=== PATIENT | female | born 1990 | race Caucasian/White ===

== ENCOUNTER → 2017-02-09 | Outpatient (CLI) | payer BC | END | disposition home or self-care (01) | LOC: MW.CHFP 11:59 | PROVIDERS: ATTEND Emergency Medicine | DX: D22.5 Melanocytic nevi of trunk (principal) | CPT/HCPCS: 88305 ==

== ENCOUNTER → 2017-02-23 | Outpatient (CLI) | payer BC ==
[~2017-02-23] MED LIST: Iopamidol 612 MG/ML 30 ML SDV IUTERINE STA
--- NOTE | 2017-02-23 10:47 | CR ---
EXAMINATION: Hysterosalpingogram. HISTORY: Infertility. Evaluate for tubal patency. PROCEDURE/FINDINGS: Written informed consent was obtained from the patient. Perineum was prepped wit h Betadine and after placement of vaginal speculum, the cervix was prepped with Betadine. A 5 [place] catheter was placed and after inflation of the balloon, 7 cc of contrast was injected until cornual regions are filled and multiple views of the pelvis are obtained. The uterine cavity is normal in configuration. No suspicious filling defects are seen. The right and left fallopian tubes are patent and spillage of contrast is noted into peritoneal cavi ty bilaterally. IMPRESSION: Patent fallopian tubes bilaterally.
== END | disposition home or self-care (01) ==
LOC: MW.DI 08:15
PROVIDERS: ATTEND Obstetrics & Gynecology
DX: Z31.49 Encounter for other procreative investigation and testing (principal)
CPT/HCPCS: 58340; 74740; Q9967

== ENCOUNTER 2018-07-07 03:15 | Inpatient (IN) | payer BC ==
[2018-07-07] MEDS ORDERED: Water For Irrigation,Sterile 1,000 ML Container IRR PRN (04:04)
[2018-07-07] MEDS ORDERED: Nalbuphine 10 MG/1 ML Vial IVPUSH PRN (04:04)
[2018-07-07] MEDS ORDERED: Lidocaine 1% 50 ML MDV INJECT PRN (04:04)
[2018-07-07] MEDS ORDERED: Sodium Chloride 0.9% 10 ML Syringe FLUSH PRN (04:04)
[2018-07-07] MEDS ORDERED: Tranexamic Acid 1,000 MG in Sodium Chloride 0.9% 100 ML IV PRN (04:04)
[2018-07-07] MEDS ORDERED: Butorphanol 1 MG/ML SDV IVPUSH PRN (04:04)
[2018-07-07] MEDS ORDERED: Sodium Chloride 0.9% 2.5 ML Syringe FLUSH PRN (04:04)
[2018-07-07] MEDS ORDERED: Misoprostol 200 MCG Tab PO PRN (04:04)
[2018-07-07] MEDS ORDERED: Carboprost Tromethamine 250 MCG/1 ML Amp IM PRN (04:04)
[2018-07-07] MEDS ORDERED: Methylergonovine 0.2 MG/1 ML Amp IM PRN (04:04)
[2018-07-07] MEDS ORDERED: Oxytocin/0.9 % Sodium Chloride 30 UNIT/500 ML BAG IV SCH (04:15)
[2018-07-07] MEDS: Lactated Ringers 1,000 ML IV SCH ×3 (04:23→12:28)
[2018-07-07] MEDS ORDERED: fentaNYL 100 MCG/2 ML SDV ONE (06:10)
[2018-07-07] MEDS ORDERED: Ropivacaine HCl/PF 100 ML ONE (06:10)
--- NOTE | 2018-07-07 06:33 | PCM.PREANE ---
Preanesthetic Assessment - Anesthesia/Transfusion/Family Hx Anesthesia History: No Prior Anesthesia Family History of Anesthesia Reaction: No - Review of Systems General: No Symptoms Pulmonary: No Symptoms Cardiovascular: No Symptoms Gastrointestinal: No Symptoms Neurological: No Symptoms Other: Reports: Thyroid Problems - Physical Assessment Height: 1.63 m Weight: 82.1 kg ASA Class: 1 Mental Status: Alert & Oriented x3 Dentition: Reports: Normal Dentition ROM/Head Extension: Full - Lab Values: Laboratory Last Values WBC 16.84 K/uL (4.0-11.0) H 07/07/18 04:23 RBC 4.14 M/uL (4.30-5.90) L 07/07/18 04:23 Hgb 13.6 g/dL (12.0-16.0) 07/07/18 04:23 Hct 38.3 % (36.0-46.0) 07/07/18 04:23 MCV 92.5 fL (80.0-98.0) 07/07/18 04:23 MCH 32.9 pg (27.0-32.0) H 07/07/18 04:23 MCHC 35.5 g/dL (31.0-37.0) 07/07/18 04:23 RDW Std Deviation 46.3 fl (28.0-62.0) 07/07/18 04:23 RDW Coeff of Brii 14 % (11.0-15.0) 07/07/18 04:23 Plt Count 182 K/uL (150-400) 07/07/18 04:23 MPV 9.90 fL (7.40-12.00) 07/07/18 04:23 Nucleated RBC % 0.0 /100WBC 07/07/18 04:23 Nucleated RBCs # 0 K/uL 07/07/18 04:23 Membrane Rupture POSITIVE 07/07/18 02:50 Blood Type O POSITIVE 07/07/18 04:23 Antibody Screen NEGATIVE 07/07/18 04:23 - Allergies Allergies/Adverse Reactions: Allergies Allergy/AdvReac Type Severity Reaction Status Date / Time No Known Allergies Allergy Verified 07/07/18 03:26 - Acknowledgements Anesthesia Type Planned: Epidural Pt an Appropriate Candidate for the Planned Anesthesia: Yes Alternatives and Risks of Anesthesia Discussed w Pt/Guardian: Yes Pt/Guardian Understands and Agrees with Anesthesia Plan: Yes 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 [No Known Home Meds] 07/07/18 [History] - CURRENT (IN HOUSE) MEDS Current Meds: Current Medications Butorphanol Tartrate (Stadol) 1 mg IVPUSH Q1H PRN PRN Reason: Pain Last Admin: 07/07/18 05:54 Dose: 1 mg Carboprost Tromethamine (Hemabate Ds) 250 mcg IM ASDIRECTED PRN PRN Reason: Post Hemorrhage Tranexamic Acid 1,000 mg/ (Sodium Chloride) 110 mls @ 660 mls/hr IV ONETIME PRN PRN Reason: Bleeding Lactated Ringer's (Ringers, Lactated) 1,000 mls @ 150 mls/hr IV ASDIRECTED MANJU Last Admin: 07/07/18 06:17 Dose: 150 mls/hr Oxytocin/Sodium Chloride (Oxytocin 30 Unit/500 Ml-Ns) 30 unit in 500 mls @ 999 mls/hr IV TITRATE MANJU Lidocaine HCl (Xylocaine 1%) 50 ml INJECT ONETIME PRN PRN Reason: Laceration repair Methylergonovine Maleate (Methergine) 0.2 mg IM ASDIRECTED PRN PRN Reason: Post Hemorrhage Misoprostol (Cytotec) 200 mcg PO ONETIME PRN PRN Reason: Post Hemorrhage Nalbuphine HCl (Nubain) 10 mg IVPUSH Q1H PRN PRN Reason: Pain (severe 7-10) Sodium Chloride (Saline Flush) 10 ml FLUSH ASDIRECTED PRN PRN Reason: Keep Vein Open Sodium Chloride (Saline Flush) 2.5 ml FLUSH ASDIRECTED PRN PRN Reason: Keep Vein Open Sterile Water (Sterile Water For Irrigation) 1,000 ml IRR ASDIRECTED PRN PRN Reason: delivery Discontinued Medications Fentanyl (Sublimaze) Confirm Administered Dose 100 mcg .ROUTE .STK-MED ONE Stop: 07/07/18 06:11 Ropivacaine (Naropin 0.2%) Confirm Administered Dose 100 mls @ as directed .ROUTE .STK-MED ONE Stop: 07/07/18 06:11
--- NOTE | 2018-07-07 06:35 | PCM.PRNOTE ---
- Free Text/Narrative Note: Anes Note Patient requests epidural for L&D. Sitting posiiton. Level L3-L4, midline approach. Sterile technique, chloroprep skin prep. Sterile drape applied. Locl 1% lido. Epidural space achieved at 4 cm using KIRBY technique, single attempt. Cathreaded 5 cm with ease. Sterile dressing applied. Test Dose 3 cc 1.5% lido with epi negative. Load 10 cc 0.2% ropivicaine with 2 mcg/cc fentanyl added in slow divided doses. Pump started same solution at 8 cc hr with 6 cc q 20 min prn bolus. Dudley well. Patient reports excellent analgesia. Kuldip Mccray CRNA
[2018-07-07] MEDS ORDERED: Ondansetron 4 MG/2 ML SDV IVPUSH ONE (12:20)
[2018-07-07] MEDS ORDERED: Ondansetron 4 MG/2 ML SDV ONE (12:22)
[2018-07-07] MEDS ORDERED: Ibuprofen 400 MG Tab PO PRN (13:48)
[2018-07-07] MEDS ORDERED: Lanolin 100% Cream 7 GM Tube TOP PRN (13:48)
[2018-07-07] MEDS ORDERED: oxyCODONE 5 MG Tab PO PRN (13:48)
[2018-07-07] MEDS ORDERED: Witch Hazel Medicated Pads 40/Jar TOP PRN (13:48)
[2018-07-07] MEDS ORDERED: Acetaminophen 500 MG Tab PO PRN ×2 (13:48)
[2018-07-07] MEDS ORDERED: Docusate Sodium 100 MG Cap PO PRN (13:48)
[2018-07-07] MEDS ORDERED: Benzocaine/Menthol 20%-0.5% Spray 78 GM Cannister TOP PRN (13:48)
[2018-07-07] MEDS ORDERED: Bisacodyl 10 MG Supp RECTAL PRN (13:48)
--- NOTE | 2018-07-07 13:53 | PCM.DEL ---
L & D Note - General Info Date of Service: 07/07/18 - Delivery Note Labor: Spontaneous Delivery Outcome: Livebirth Delivery Method: Spontaneous Vaginal Delivery-Single Delivery Mode: Spontaneous Presentation: Right Occiput Anterior (ALO) Nuchal Cord: None Prep: Other Anesthesia Type: Epidural Amniotic Fluid Description: Clear Episiotomy Type: None Laceration: None Placenta: Intact, Spontaneous Cord: 3 Vessels Estimated Blood Loss: 100 Resuscitation Needed: No Foster: Suctioned, Bulb Syringe, Xenia Used Score 1 min: 8 Score 5 min: 9 - General Info Date of Service: 07/07/18 - Patient Data Weight - Most Recent: 181 lb Lab Results Last 24 Hours: Laboratory Results - last 24 hr 07/07/18 07/07/18 07/07/18 Range/Units 02:50 04:23 04:23 WBC 16.84 H (4.0-11.0) K/uL RBC 4.14 L (4.30-5.90) M/uL Hgb 13.6 (12.0-16.0) g/dL Hct 38.3 (36.0-46.0) % MCV 92.5 (80.0-98.0) fL MCH 32.9 H (27.0-32.0) pg MCHC 35.5 (31.0-37.0) g/dL RDW Std Deviation 46.3 (28.0-62.0) fl RDW Coeff of Brii 14 (11.0-15.0) % Plt Count 182 (150-400) K/uL MPV 9.90 (7.40-12.00) fL Nucleated RBC % 0.0 /100WBC Nucleated RBCs # 0 K/uL Membrane Rupture POSITIVE Blood Type O POSITIVE Antibody Screen NEGATIVE Med Orders - Current: Current Medications Acetaminophen (Tylenol Extra Strength) 500 mg PO Q4H PRN PRN Reason: Pain Acetaminophen (Tylenol Extra Strength) 1,000 mg PO Q4H PRN PRN Reason: Pain Benzocaine/Menthol (Dermoplast Pain Relief 20%-0.5% [place]) 78 gm TOP ASDIRECTED PRN PRN Reason: Perineal Comfort Measure Bisacodyl (Dulcolax) 10 mg RECTAL ONETIME PRN PRN Reason: Constipation Docusate Sodium (Colace) 100 mg PO BID PRN PRN Reason: Constipation Emollient Ointment (Lansinoh Hpa) 0 gm TOP ASDIRECTED PRN PRN Reason: Sore Nipples Ibuprofen (Motrin) 400 mg PO Q4H PRN PRN Reason: Pain Ibuprofen (Motrin) 800 mg PO Q6H PRN PRN Reason: Pain Oxycodone HCl (Oxycodone) 5 mg PO Q2H PRN PRN Reason: Pain Witch Jaci (Tucks) 1 pad TOP ASDIRECTED PRN PRN Reason: comfort care Discontinued Medications Butorphanol Tartrate (Stadol) 1 mg IVPUSH Q1H PRN PRN Reason: Pain Last Admin: 07/07/18 05:54 Dose: 1 mg Carboprost Tromethamine (Hemabate Ds) 250 mcg IM ASDIRECTED PRN PRN Reason: Post Hemorrhage Fentanyl (Sublimaze) Confirm Administered Dose 100 mcg .ROUTE .STK-MED ONE Stop: 07/07/18 06:11 Tranexamic Acid 1,000 mg/ (Sodium Chloride) 110 mls @ 660 mls/hr IV ONETIME PRN PRN Reason: Bleeding Lactated Ringer's (Ringers, Lactated) 1,000 mls @ 150 mls/hr IV ASDIRECTED MANJU Last Admin: 07/07/18 12:28 Dose: 150 mls/hr Oxytocin/Sodium Chloride (Oxytocin 30 Unit/500 Ml-Ns) 30 unit in 500 mls @ 999 mls/hr IV TITRATE MANJU Ropivacaine (Naropin 0.2%) Confirm Administered Dose 100 mls @ as directed .ROUTE .STK-MED ONE Stop: 07/07/18 06:11 Lidocaine HCl (Xylocaine 1%) 50 ml INJECT ONETIME PRN PRN Reason: Laceration repair Methylergonovine Maleate (Methergine) 0.2 mg IM ASDIRECTED PRN PRN Reason: Post Hemorrhage Misoprostol (Cytotec) 200 mcg PO ONETIME PRN PRN Reason: Post Hemorrhage Nalbuphine HCl (Nubain) 10 mg IVPUSH Q1H PRN PRN Reason: Pain (severe 7-10) Ondansetron HCl (Zofran) 4 mg IVPUSH ONETIME ONE Stop: 07/07/18 12:21 Last Admin: 07/07/18 12:28 Dose: 4 mg Ondansetron HCl (Zofran) Confirm Administered Dose 4 mg .ROUTE .STK-MED ONE Stop: 07/07/18 12:23 Sodium Chloride (Saline Flush) 10 ml FLUSH ASDIRECTED PRN PRN Reason: Keep Vein Open Sodium Chloride (Saline Flush) 2.5 ml FLUSH ASDIRECTED PRN PRN Reason: Keep Vein Open Sterile Water (Sterile Water For Irrigation) 1,000 ml IRR ASDIRECTED PRN PRN Reason: delivery - Problem List & Annotations (1) Vaginal delivery SNOMED Code(s): 324252340 Code(s): O80 - ENCOUNTER FOR FULL-TERM UNCOMPLICATED DELIVERY Status: Acute Current Visit: Yes - Problem List Review Problem List Initiated/Reviewed/Updated: Yes - My Orders Last 24 Hours: My Active Orders 07/07/18 03:27 Non Stress Test [RC] PER UNIT ROUTINE Up ad Kisha [RC] ASDIRECTED Vaginal Exam [RC] Click to Edit Vital Signs [RC] PER UNIT ROUTINE 07/07/18 04:04 Heart Tones [RC] CONTINUOUS Non Stress Test [RC] PER UNIT ROUTINE May Shower [RC] ASDIRECTED Notify Provider [RC] PRN Up ad Kisha [RC] ASDIRECTED Vaginal Exam [RC] PRN 07/07/18 13:28 BLOOD GAS ARTERIAL UMBILICAL [BG] Routine BLOOD GAS VENOUS UMBILICAL [BG] Routine 07/07/18 13:48 Patient Status [ADT] Routine May Shower [RC] ASDIRECTED Up ad Kisha [RC] ASDIRECTED Vital Signs [RC] PER UNIT ROUTINE Acetaminophen [Tylenol Extra Strength] 1,000 mg PO Q4H PRN Acetaminophen [Tylenol Extra Strength] 500 mg PO Q4H PRN Benzocaine/Menthol [Dermoplast Pain Relief 20%-0.5% [place]] 78 gm TOP ASDIRECTED PRN Bisacodyl [Dulcolax] 10 mg RECTAL ONETIME PRN Docusate Sodium [Colace] 100 mg PO BID PRN Ibuprofen [Motrin] 400 mg PO Q4H PRN Ibuprofen [Motrin] 800 mg PO Q6H PRN Lanolin [Lansinoh HPA] See Dose Instructions TOP ASDIRECTED PRN Witch Jaci [Tucks] 1 pad TOP ASDIRECTED PRN oxyCODONE 5 mg PO Q2H PRN Assess Lochia [WOMSER] Per Unit Routine Assess Uterine Involution [WOMSER] Per Unit Routine Breast Pump [WOMSER] Per Unit Routine Peripheral IV Discontinue [OM.PC] Routine Resuscitation Status Routine 07/07/18 Dinner Regular Diet [DIET] 07/08/18 05:11 HEMOGLOBIN/HEMATOCRIT,HH [HEME] Timed
[2018-07-07] MEDS: Ibuprofen 800 MG Tab PO PRN (15:34)
--- NOTE | 2018-07-07 20:20 | OR ---
SURGEON: Judith Hart MD DATE OF PROCEDURE: 07/07/2018 PREOPERATIVE DIAGNOSES: 1. Term at 39 weeks and 3 days. 2. Spontaneous labor with spontaneous rupture of membrane. POSTOPERATIVE DIAGNOSES: 1. Term at 39 weeks and 3 days. 2. Spontaneous labor with spontaneous rupture of membrane. 3. Delivered. PROCEDURE: Spontaneous vaginal delivery. ANESTHESIA: Epidural. ESTIMATED BLOOD LOSS: 100 mL. COMPLICATIONS: None. DISPOSITION: Mother and baby stable in Labor and Delivery room, bonding. FINDINGS: Female , weight 3210 g, score 8 and 9 at 1 and 5 minutes respectively. Grossly normal placenta with three-vessel cord. Intact perineum. BRIEF HISTORY: Concepcion is a 27-year-old G1, P0, who presented to Labor and Delivery early hours of this morning at 39 weeks and 3 days with history of contractions for at least 3 hours prior to her presentation and then spontaneous rupture of membrane leaking clear fluid about an hour prior to her presenting. She denied vaginal bleeding, and reported movement. care was uncomplicated. GBS negative. On admission, she was found to be 3 cm dilated, 90% effaced, -3 station. She was admitted and with a category , she was allowed to ambulate. When she was reexamined 4 hours later, she had made cervical change to 6 to 7 cm dilatation and requested to receive an epidural then for pain management. She subsequently progressed nicely to full dilatation and commenced active pushing. She pushed quite well bringing the baby's head down to a +4 station after pushing for approximately 40 minutes and she was set up for delivery in a modified dorsal lithotomy position. heart tracing was mainly category 1 during the first stage and category 2 at second stage with variable decelerations. DESCRIPTION OF PROCEDURE: She had a spontaneous vaginal delivery of a live female infant in right occipital anterior position, clear amniotic fluid at delivery, no nuchal cord. Anterior and posterior shoulders and the rest of the baby were delivered without difficulty. Baby was vigorous and cried spontaneously at . Baby was delivered onto the maternal abdomen with the nursery nurse in attendance drying and evaluating her. With delivery of the , oxytocin, infusion was commenced for active management of the third stage of labor. Delayed cord clamping was performed and the cord was subsequently cut by the father of the baby. Cord blood and gas samples were obtained. Placenta was delivered by controlled cord traction, appeared to be complete and intact. The examination of the perineum revealed no lacerations. Uterine massage was performed. The uterus was found to be well contracted at the umbilicus. The patient tolerated the procedure well. Sponge, instrument, and needle counts were correct at the end of the delivery. ADUMVIV / TARYNL /[id number] MTDD
--- NOTE | 2018-07-08 00:12 | PCM.POSTAN ---
POST ANESTHESIA ASSESSMENT - MENTAL STATUS Mental Status: Alert - RESPIRATORY Respiratory Status: Respiratory Rate WNL - CARDIOVASCULAR CV Status: Pulse Rate WNL - GASTROINTESTINAL GI Status: No Symptoms - POST OP HYDRATION Hydration Status: Adequate & Stable
--- NOTE | 2018-07-08 00:13 | PCM48HPAN ---
Post Anesthesia Note - EVALUATION WITHIN 48HRS OF ANESTHETIC Vital Signs in Normal Range: Yes Patient Participated in Evaluation: Yes Respiratory Function Stable: Yes Airway Patent: Yes Cardiovascular Function Stable: Yes Hydration Status Stable: Yes Pain Control Satisfactory: Yes Nausea and Vomiting Control Satisfactory: Yes Mental Status Recovered: Yes Resp Rate: 17
[2018-07-08] MEDS: Ibuprofen 800 MG Tab PO PRN (03:58)
[2018-07-08 07:32] VITALS: BP 94/51
--- NOTE | 2018-07-08 13:36 | PCM.PNPP ---
- General Info Date of Service: 07/08/18 Functional Status: Reports: Pain Controlled, Tolerating Diet, Ambulating, Urinating - Review of Systems General: Denies: Fever, Malaise HEENT: Denies: Headaches Pulmonary: Denies: Shortness of Breath, Pleuritic Chest Pain Cardiovascular: Denies: Chest Pain, Palpitations, Dyspnea on Exertion Gastrointestinal: Denies: Abdominal Pain Genitourinary: Denies: Dysuria, Incontinence, Retention - General Info Date of Service: 07/08/18 - Patient Data Vital Signs - Most Recent: Last Vital Signs Temp 36.2 C 07/08/18 07:31 Pulse 89 07/08/18 07:31 Resp 16 07/08/18 07:31 BP 94/51 L 07/08/18 07:31 Pulse Ox 97 07/08/18 07:31 Weight - Most Recent: 181 lb Lab Results - Last 24 Hours: Laboratory Results - last 24 hr 07/07/18 07/08/18 Range/Units 13:07 06:12 Hgb 11.5 L (12.0-16.0) g/dL Hct 34.0 L (36.0-46.0) % Cord ABG pH 7.225 (7.18-7.38) Cord ABG Base Excess -9 (-10--2) Cord VBG pH 7.343 (7.25-7.45) Cord VBG Base Excess -6 (-10--2) Med Orders - Current: Current Medications Acetaminophen (Tylenol Extra Strength) 500 mg PO Q4H PRN PRN Reason: Pain Acetaminophen (Tylenol Extra Strength) 1,000 mg PO Q4H PRN PRN Reason: Pain Benzocaine/Menthol (Dermoplast Pain Relief 20%-0.5% [place]) 78 gm TOP ASDIRECTED PRN PRN Reason: Perineal Comfort Measure Bisacodyl (Dulcolax) 10 mg RECTAL ONETIME PRN PRN Reason: Constipation Docusate Sodium (Colace) 100 mg PO BID PRN PRN Reason: Constipation Emollient Ointment (Lansinoh Hpa) 0 gm TOP ASDIRECTED PRN PRN Reason: Sore Nipples Ibuprofen (Motrin) 400 mg PO Q4H PRN PRN Reason: Pain Ibuprofen (Motrin) 800 mg PO Q6H PRN PRN Reason: Pain Last Admin: 07/08/18 03:58 Dose: 800 mg Oxycodone HCl (Oxycodone) 5 mg PO Q2H PRN PRN Reason: Pain Witch Jaci (Tucks) 1 pad TOP ASDIRECTED PRN PRN Reason: comfort care Discontinued Medications Butorphanol Tartrate (Stadol) 1 mg IVPUSH Q1H PRN PRN Reason: Pain Last Admin: 07/07/18 05:54 Dose: 1 mg Carboprost Tromethamine (Hemabate Ds) 250 mcg IM ASDIRECTED PRN PRN Reason: Post Hemorrhage Fentanyl (Sublimaze) Confirm Administered Dose 100 mcg .ROUTE .STK-MED ONE Stop: 07/07/18 06:11 Tranexamic Acid 1,000 mg/ (Sodium Chloride) 110 mls @ 660 mls/hr IV ONETIME PRN PRN Reason: Bleeding Lactated Ringer's (Ringers, Lactated) 1,000 mls @ 150 mls/hr IV ASDIRECTED MANJU Last Admin: 07/07/18 12:28 Dose: 150 mls/hr Oxytocin/Sodium Chloride (Oxytocin 30 Unit/500 Ml-Ns) 30 unit in 500 mls @ 999 mls/hr IV TITRATE [facility] Ropivacaine (Naropin 0.2%) Confirm Administered Dose 100 mls @ as directed .ROUTE .STK-MED ONE Stop: 07/07/18 06:11 Lidocaine HCl (Xylocaine 1%) 50 ml INJECT ONETIME PRN PRN Reason: Laceration repair Methylergonovine Maleate (Methergine) 0.2 mg IM ASDIRECTED PRN PRN Reason: Post Hemorrhage Misoprostol (Cytotec) 200 mcg PO ONETIME PRN PRN Reason: Post Hemorrhage Nalbuphine HCl (Nubain) 10 mg IVPUSH Q1H PRN PRN Reason: Pain (severe 7-10) Ondansetron HCl (Zofran) 4 mg IVPUSH ONETIME ONE Stop: 07/07/18 12:21 Last Admin: 07/07/18 12:28 Dose: 4 mg Ondansetron HCl (Zofran) Confirm Administered Dose 4 mg .ROUTE .STK-MED ONE Stop: 07/07/18 12:23 Sodium Chloride (Saline Flush) 10 ml FLUSH ASDIRECTED PRN PRN Reason: Keep Vein Open Sodium Chloride (Saline Flush) 2.5 ml FLUSH ASDIRECTED PRN PRN Reason: Keep Vein Open Sterile Water (Sterile Water For Irrigation) 1,000 ml IRR ASDIRECTED PRN PRN Reason: delivery - Infant Interaction Disposition, : [place] in Room with Family Feeding: Breastfed ; Nursed Well, Continues to Breastfeed Support Person: - Recovery Exam Fundal Tone: Firm Fundal Level: At Umbilicus Fundal Placement: Midline Lochia Amount: Scant Lochia Color: Rubra/Red Perineum Description: Intact, Minimal Bruising/Swelling Episiotomy/Laceration: None Bladder Status: Voiding Urinary Elimination: Voided - Exam General: Alert, Oriented Lungs: Clear to Auscultation, Normal Respiratory Effort Cardiovascular: Regular Rate, Regular Rhythm GI/Abdominal Exam: Non-Tender Extremities: Non-Tender, Pedal Edema Skin: Warm Psy/Mental Status: Alert, Normal Affect, Normal Mood - Problem List & Annotations (1) Vaginal delivery SNOMED Code(s): 483251720 Code(s): O80 - ENCOUNTER FOR FULL-TERM UNCOMPLICATED DELIVERY Status: Acute Current Visit: Yes - Problem List Review Problem List Initiated/Reviewed/Updated: Yes - My Orders Last 24 Hours: My Active Orders 07/07/18 13:48 Patient Status [ADT] Routine May Shower [RC] ASDIRECTED Up ad Kisha [RC] ASDIRECTED Vital Signs [RC] PER UNIT ROUTINE Acetaminophen [Tylenol Extra Strength] 1,000 mg PO Q4H PRN Acetaminophen [Tylenol Extra Strength] 500 mg PO Q4H PRN Benzocaine/Menthol [Dermoplast Pain Relief 20%-0.5% [place]] 78 gm TOP ASDIRECTED PRN Bisacodyl [Dulcolax] 10 mg RECTAL ONETIME PRN Docusate Sodium [Colace] 100 mg PO BID PRN Ibuprofen [Motrin] 400 mg PO Q4H PRN Ibuprofen [Motrin] 800 mg PO Q6H PRN Lanolin [Lansinoh HPA] See Dose Instructions TOP ASDIRECTED PRN Witch Jaci [Tucks] 1 pad TOP ASDIRECTED PRN oxyCODONE 5 mg PO Q2H PRN Assess Lochia [WOMSER] Per Unit Routine Assess Uterine Involution [WOMSER] Per Unit Routine Breast Pump [WOMSER] Per Unit Routine Peripheral IV Discontinue [OM.PC] Routine Resuscitation Status Routine 07/07/18 Dinner Regular Diet [DIET] - Assessment Assessment:: PPD#1 s/p , stable and afebrile Would like to go home later today - Plan Plan:: Discharge instructions reviewed Nothing in the vagina for 6 weeks Bleeding and infection precautions reviewed May use OTC pain meds PRN blues and depression S/S reviewed Follow up in 6 weeks
== END 2018-07-08 19:15 | disposition home or self-care (01) | DRG 560 ==
LOC: MW.OBCHECK 03:15 → MW.OB 03:17 → MW.OBCHECK 04:04 → OBSVTOIN 16:00
PROVIDERS: ADMIT Obstetrics & Gynecology; ATTEND Obstetrics & Gynecology
PROC: 10E0XZZ Delivery of Products of Conception, External Approach (ICD-10-PCS; principal; 2018-07-07)
PROC: 00HU33Z Insertion of Infusion Device into Spinal Canal, Percutaneous Approach (ICD-10-PCS; 2018-07-07)
DX: O42.02 Full-term premature rupture of membranes, onset of labor within 24 hours of rupture (principal); Z3A.39 39 weeks gestation of pregnancy; Z37.0 Single live birth
CPT/HCPCS: 36415; 51702; 59025; 59409; 82803; 84112; 85014; 85018; 85027; 86850; 86900; 86901; A9270-GY; J0595; J2405; J2795; J3010; J7120

== ENCOUNTER 2021-07-04 05:03 | Inpatient (IN) | payer BC ==
[2021-07-04] MEDS ORDERED: Misoprostol 200 MCG Tab PO PRN (06:22)
[2021-07-04] MEDS ORDERED: Carboprost Tromethamine 250 MCG/1 ML Amp IM PRN (06:22)
[2021-07-04] MEDS ORDERED: Sodium Chloride 0.9% 2.5 ML Syringe FLUSH PRN (06:22)
[2021-07-04] MEDS ORDERED: Sodium Chloride 0.9% 10 ML Syringe FLUSH PRN (06:22)
[2021-07-04] MEDS ORDERED: Sodium Chloride 0.9% 10 ML SDV IV PRN (06:22)
[2021-07-04] MEDS ORDERED: Methylergonovine 0.2 MG/1 ML Amp IM PRN (06:22)
[2021-07-04] MEDS ORDERED: Butorphanol 1 MG/ML SDV IVPUSH PRN (06:22)
[2021-07-04] MEDS ORDERED: Tranexamic Acid 1,000 MG in Sodium Chloride 0.9% 100 ML IV PRN (06:22)
[2021-07-04] MEDS ORDERED: Water For Irrigation,Sterile 1,000 ML Container IRR PRN (06:22)
[2021-07-04] MEDS ORDERED: Nalbuphine 10 MG/1 ML Vial IVPUSH PRN (06:22)
[2021-07-04] MEDS ORDERED: Lidocaine 1% 50 ML MDV INJECT PRN (06:22)
[2021-07-04] MEDS ORDERED: Oxytocin/0.9 % Sodium Chloride 30 UNIT/500 ML BAG IV SCH ×2 (06:30→10:45)
[2021-07-04] MEDS: Acetaminophen 500 MG Tab PO PRN ×2 (07:40→20:14)
[2021-07-04] MEDS ORDERED: Terbutaline 1 MG/ML SDV SUBCUT PRN (10:32)
[2021-07-04] MEDS: Lactated Ringers 1,000 ML IV SCH ×3 (10:55→14:26)
[2021-07-04] MEDS ORDERED: Ropivacaine HCl/PF 200 ML ONE (13:40)
[2021-07-04] MEDS ORDERED: ePHEDrine 50 MG/ML SDV IVPUSH PRN (14:06)
--- NOTE | 2021-07-04 14:10 | PCM.PREANE ---
Preanesthetic Assessment - Anesthesia/Transfusion/Family Hx Anesthesia History: No Prior Anesthesia Family History of Anesthesia Reaction: No Transfusion History: No Prior Transfusion(s) - Physical Assessment Height: 5 ft 4 in Weight: 178 lb ASA Class: 2 Airway Class: Mallampati = 3 - Lab Values: Laboratory Last Values WBC 12.52 K/uL (4.0-11.0) H 07/04/21 06:15 RBC 4.14 M/uL (4.30-5.90) L 07/04/21 06:15 Hgb 12.5 g/dL (12.0-16.0) 07/04/21 06:15 Hct 36.5 % (36.0-46.0) 07/04/21 06:15 MCV 88.2 fL (80.0-98.0) 07/04/21 06:15 MCH 30.2 pg (27.0-32.0) 07/04/21 06:15 MCHC 34.2 g/dL (31.0-37.0) 07/04/21 06:15 RDW Std Deviation 41.0 fl (28.0-62.0) 07/04/21 06:15 RDW Coeff of Brii 13 % (11.0-15.0) 07/04/21 06:15 Plt Count 205 K/uL (150-400) 07/04/21 06:15 MPV 9.90 fL (7.40-12.00) 07/04/21 06:15 Nucleated RBC % 0.0 /100WBC 07/04/21 06:15 Nucleated RBCs # 0 K/uL 07/04/21 06:15 Membrane Rupture POSITIVE 07/04/21 05:20 SARS-CoV-2 RNA (SHANNAN) NEGATIVE (NEGATIVE) 07/04/21 06:18 Blood Type O POSITIVE 07/04/21 06:15 Antibody Screen NEGATIVE 07/04/21 06:15 - Allergies Allergies/Adverse Reactions: Allergies Allergy/AdvReac Type Severity Reaction Status Date / Time No Known Allergies Allergy Verified 07/07/18 03:26 - Blood Blood Available: Yes Product(s) Available: PRBC - Anesthesia Plan Pre-Op Medication Ordered: None - Acknowledgements Anesthesia Type Planned: Epidural Pt an Appropriate Candidate for the Planned Anesthesia: Yes Alternatives and Risks of Anesthesia Discussed w Pt/Guardian: Yes Pt/Guardian Understands and Agrees with Anesthesia Plan: Yes PreAnesthesia Questionnaire - Past Health History Medical/Surgical History: Denies Medical/Surgical History 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: - Infectious Disease History Infectious Disease History: Reports: Chicken Pox - Past Surgical History HEENT Surgical History: Reports: Tonsillectomy, Other (See Below) Other HEENT Surgeries/Procedures: Tons Musculoskeletal Surgical History: Reports: Other (See Below) Other Musculoskeletal Surgeries/Procedures:: Right elbo repair - SUBSTANCE USE Tobacco Use Status *Q: Never Tobacco User Tobacco Use Within Last Twelve Months: No Second Hand Smoke Exposure: No Recreational Drug Use History: No - HOME MEDS Home Medications: Home Meds Pnv No.95/Ferrous Fum/Folic AC [ Caplet] 1 each PO DAILY 07/04/21 [History] - CURRENT (IN HOUSE) MEDS Current Meds: Current Medications Acetaminophen (Acetaminophen 500 Mg Tab) 1,000 mg PO Q6H PRN PRN Reason: Headache Last Admin: 07/04/21 07:40 Dose: 1,000 mg Documented by: Butorphanol Tartrate (Butorphanol 1 Mg/Ml Sdv) 1 mg IVPUSH Q1H PRN PRN Reason: Pain (severe 7-10) Carboprost Tromethamine (Carboprost Tromethamine 250 Mcg/1 Ml Amp) 250 mcg IM ASDIRECTED PRN PRN Reason: Post Hemorrhage Ephedrine Sulfate (Ephedrine 50 Mg/Ml Sdv) 10 mg IVPUSH Q5M PRN PRN Reason: Hypotension Lactated Ringer's (Ringers, Lactated) 1,000 mls @ 150 mls/hr IV ASDIRECTED MANJU Last Admin: 07/04/21 13:37 Dose: 150 mls/hr Documented by: Oxytocin/Sodium Chloride (Oxytocin 30 Unit/500 Ml-Ns) 30 unit in 500 mls @ 999 mls/hr IV TITRATE MAJNU Tranexamic Acid 1,000 mg/ (Sodium Chloride) 110 mls @ 660 mls/hr IV ONETIME PRN PRN Reason: Bleeding Oxytocin/Sodium Chloride (Oxytocin 30 Unit/500 Ml-Ns) 30 unit in 500 mls @ 2 mls/hr IV TITRATE MANJU; Protocol Last Titration: 07/04/21 13:36 Dose: 8 munits/min, 8 mls/hr Documented by: Lidocaine HCl (Lidocaine 1% 50 Ml Mdv) 50 ml INJECT ONETIME PRN PRN Reason: Laceration repair Methylergonovine Maleate (Methylergonovine 0.2 Mg/1 Ml Amp) 0.2 mg IM ASDIRECTED PRN PRN Reason: Post Hemorrhage Misoprostol (Misoprostol 200 Mcg Tab) 200 mcg PO ONETIME PRN PRN Reason: Post Hemorrhage Nalbuphine HCl (Nalbuphine 10 Mg/1 Ml Vial) 10 mg IVPUSH Q1H PRN PRN Reason: Pain (severe 7-10) Sodium Chloride (Sodium Chloride 0.9% 10 Ml Syringe) 10 ml FLUSH ASDIRECTED PRN PRN Reason: Keep Vein Open Sodium Chloride (Sodium Chloride 0.9% 2.5 Ml Syringe) 2.5 ml FLUSH ASDIRECTED PRN PRN Reason: Keep Vein Open Sodium Chloride (Sodium Chloride 0.9% 10 Ml Sdv) 10 ml IV ASDIRECTED PRN PRN Reason: IV Use Sterile Water (Water For Irrigation,Sterile 1,000 Ml Container) 1,000 ml IRR ASDIRECTED PRN PRN Reason: delivery Terbutaline Sulfate (Terbutaline 1 Mg/Ml Sdv) 0.25 mg SUBCUT ASDIRECTED PRN PRN Reason: Tacysystole Discontinued Medications Ropivacaine (Naropin 0.2%) Confirm Administered Dose 200 mls @ as directed .ROUTE .RUSTMED ONE Stop: 07/04/21 13:41 - Pre-Procedure Checklist Attending Provider Aware: Yes Chart Reviewed: Yes Consent Signed: Yes Labs Reviewed: Yes VS/FHR Reviewed: Yes Patient Identification Confirmation Method: Reports: Verbal Patient Pt an Appropriate Candidate for the Planned Anesthesia: Yes Alternatives and Risks of Anesthesia Discussed w Pt/Guardian: Yes - Procedure Procedure Start Date: 07/04/21 Procedure Start Time: 13:[address]: Reports: Blood Pressure, Heart Rate, SPO2 Functional IV: Yes Safety Measures: Reports: Patient Identified, Procedure Verified, Site Verified, Procedure Time Out Patient Position: Reports: Sitting Prep: Reports: Betadine x3, Sterile Drape Local Anesthetic: Reports: Intradermal Wheal w Lidocaine 1% Regional Placement Level: Reports: L3-4 Needle: Reports: 17 g Touhy Approach: Reports: Midline Technique: Reports: KIRBY Plastic Syringe Parasthesia: Reports: None Fluid Obtained: Reports: None Test Dose Time: 13:51 Test Dose Medication: Reports: Lidocaine 1.5% w Epinephrine 1:200,000 Test Dose Response: Reports: Negative Loading Dose Time: 13:50 Loading Dose Medication: bupivicaine 0.25% 10 cc Loading Dose Patient Position: sitting Continuous Infusion Start Time: 13:55 Continuous Infusion Medication: ropivicaine 0.2% Continuous Infusion Rate: 16 Continuous Infusion PCS Bolus Option: 4 Patient Position Post Placement: Reports: Supline/MALATHI VS and FHR Monitored in Unit Post Placement: Yes Procedure End Date: 07/04/21 Procedure End Time: 14:43
[2021-07-04] MEDS ORDERED: Ondansetron 4 MG/2 ML SDV IVPUSH PRN (14:13)
[2021-07-04] MEDS ORDERED: Ibuprofen 400 MG Tab PO PRN (18:43)
[2021-07-04] MEDS ORDERED: Lanolin 100% Cream 7 GM Tube TOP PRN (18:43)
[2021-07-04] MEDS ORDERED: oxyCODONE 5 MG Tab PO PRN (18:43)
[2021-07-04] MEDS ORDERED: Acetaminophen 500 MG Tab PO PRN ×2 (18:43)
[2021-07-04] MEDS ORDERED: Benzocaine/Menthol 20%-0.5% Spray 78 GM Cannister TOP PRN (18:43)
[2021-07-04] MEDS ORDERED: Bisacodyl 10 MG Supp RECTAL PRN (18:43)
[2021-07-04] MEDS ORDERED: Docusate Sodium 100 MG Cap PO PRN (18:43)
--- NOTE | 2021-07-04 18:59 | PCM.DEL ---
L & D Note - General Info Date of Service: 07/04/21 - Delivery Note Labor: Augmented by Oxytocin Delivery Outcome: Livebirth Presentation: Left Occiput Anterior (BYRON) Nuchal Cord: Present Anesthesia Type: Epidural Amniotic Fluid Description: Clear Episiotomy Type: None Laceration: 2nd Degree Suture type: Other (Monocryl) Suture size: 2-0 Cord: 3 Vessels Estimated Blood Loss: 200 Resuscitation Needed: No [place]: Bulb Syringe Score 1 min: 8 Score 5 min: 9 Second Stage Interventions: Reports: Pushing Effectively Delivery Comments (Free Text/Narrative):: Live female delivered at 418pm , 8/9 , weight 3570g - General Info Date of Service: 07/04/21 - Patient Data Weight - Most Recent: 80.739 kg I&O - Last 24 Hours: Intake & Output 07/04/21 07/04/21 07/04/21 06:59 14:59 22:59 Intake Total 950 1700 Output Total 700 Balance 950 1000 Lab Results Last 24 Hours: Laboratory Results - last 24 hr 07/04/21 07/04/21 07/04/21 Range/Units 05:20 06:15 06:15 WBC 12.52 H (4.0-11.0) K/uL RBC 4.14 L (4.30-5.90) M/uL Hgb 12.5 (12.0-16.0) g/dL Hct 36.5 (36.0-46.0) % MCV 88.2 (80.0-98.0) fL MCH 30.2 (27.0-32.0) pg MCHC 34.2 (31.0-37.0) g/dL RDW Std Deviation 41.0 (28.0-62.0) fl RDW Coeff of Brii 13 (11.0-15.0) % Plt Count 205 (150-400) K/uL MPV 9.90 (7.40-12.00) fL Nucleated RBC % 0.0 /100WBC Nucleated RBCs # 0 K/uL Cord ABG pH (7.18-7.38) Cord ABG Base Excess (-10--2) Cord VBG pH (7.25-7.45) Cord VBG Base Excess (-10--2) Membrane Rupture POSITIVE SARS-CoV-2 RNA (SHANNAN) (NEGATIVE) Blood Type O POSITIVE Antibody Screen NEGATIVE 07/04/21 07/04/21 Range/Units 06:18 16:18 WBC (4.0-11.0) K/uL RBC (4.30-5.90) M/uL Hgb (12.0-16.0) g/dL Hct (36.0-46.0) % MCV (80.0-98.0) fL MCH (27.0-32.0) pg MCHC (31.0-37.0) g/dL RDW Std Deviation (28.0-62.0) fl RDW Coeff of Brii (11.0-15.0) % Plt Count (150-400) K/uL MPV (7.40-12.00) fL Nucleated RBC % /100WBC Nucleated RBCs # K/uL Cord ABG pH 7.251 (7.18-7.38) Cord ABG Base Excess -6 (-10--2) Cord VBG pH 7.378 (7.25-7.45) Cord VBG Base Excess -6 (-10--2) Membrane Rupture SARS-CoV-2 RNA (SHANNAN) NEGATIVE (NEGATIVE) Blood Type Antibody Screen Med Orders - Current: Current Medications Acetaminophen (Acetaminophen 500 Mg Tab) 1,000 mg PO Q6H PRN PRN Reason: Headache Last Admin: 07/04/21 07:40 Dose: 1,000 mg Documented by: Butorphanol Tartrate (Butorphanol 1 Mg/Ml Sdv) 1 mg IVPUSH Q1H PRN PRN Reason: Pain (severe 7-10) Carboprost Tromethamine (Carboprost Tromethamine 250 Mcg/1 Ml Amp) 250 mcg IM ASDIRECTED PRN PRN Reason: Post Hemorrhage Ephedrine Sulfate (Ephedrine 50 Mg/Ml Sdv) 10 mg IVPUSH Q5M PRN PRN Reason: Hypotension Lactated Ringer's (Ringers, Lactated) 1,000 mls @ 150 mls/hr IV ASDIRECTED MANJU Last Admin: 07/04/21 14:26 Dose: 150 mls/hr Documented by: Oxytocin/Sodium Chloride (Oxytocin 30 Unit/500 Ml-Ns) 30 unit in 500 mls @ 999 mls/hr IV TITRATE MANJU Tranexamic Acid 1,000 mg/ (Sodium Chloride) 110 mls @ 660 mls/hr IV ONETIME PRN PRN Reason: Bleeding Lidocaine HCl (Lidocaine 1% 50 Ml Mdv) 50 ml INJECT ONETIME PRN PRN Reason: Laceration repair Methylergonovine Maleate (Methylergonovine 0.2 Mg/1 Ml Amp) 0.2 mg IM ASDIRECTED PRN PRN Reason: Post Hemorrhage Misoprostol (Misoprostol 200 Mcg Tab) 200 mcg PO ONETIME PRN PRN Reason: Post Hemorrhage Nalbuphine HCl (Nalbuphine 10 Mg/1 Ml Vial) 10 mg IVPUSH Q1H PRN PRN Reason: Pain (severe 7-10) Ondansetron HCl (Ondansetron 4 Mg/2 Ml Sdv) 4 mg IVPUSH Q6H PRN PRN Reason: Nausea/Vomiting Last Admin: 07/04/21 14:18 Dose: 4 mg Documented by: Sodium Chloride (Sodium Chloride 0.9% 10 Ml Syringe) 10 ml FLUSH ASDIRECTED PRN PRN Reason: Keep Vein Open Sodium Chloride (Sodium Chloride 0.9% 2.5 Ml Syringe) 2.5 ml FLUSH ASDIRECTED PRN PRN Reason: Keep Vein Open Terbutaline Sulfate (Terbutaline 1 Mg/Ml Sdv) 0.25 mg SUBCUT ASDIRECTED PRN PRN Reason: Tacysystole Discontinued Medications Oxytocin/Sodium Chloride (Oxytocin 30 Unit/500 Ml-Ns) 30 unit in 500 mls @ 2 mls/hr IV TITRATE MANJU; Protocol Last Titration: 07/04/21 16:18 Dose: 999 munits/min, 999 mls/hr Documented by: Ropivacaine (Naropin 0.2%) Confirm Administered Dose 200 mls @ as directed .ROUTE .STK-MED ONE Stop: 07/04/21 13:41 Sodium Chloride (Sodium Chloride 0.9% 10 Ml Sdv) 10 ml IV ASDIRECTED PRN PRN Reason: IV Use Sterile Water (Water For Irrigation,Sterile 1,000 Ml Container) 1,000 ml IRR ASDIRECTED PRN PRN Reason: delivery - Exam Urinary Catheter Total Time: 0Days 3Hours - Problem List & Annotations (1) Vaginal delivery SNOMED Code(s): 801309482 Code(s): O80 - ENCOUNTER FOR FULL-TERM UNCOMPLICATED DELIVERY Status: Acute Current Visit: No - Problem List Review Problem List Initiated/Reviewed/Updated: Yes - My Orders Last 24 Hours: My Active Orders 07/04/21 05:30 Up ad Kisha [RC] ASDIRECTED Vital Signs [RC] PER UNIT ROUTINE 07/04/21 06:15 RPR (SYPHILIS SERO) W/ RFLX [REF] Routine 07/04/21 06:22 Patient Status [ADT] Routine May Shower [RC] ASDIRECTED Notify Provider [RC] PRN Butorphanol [Stadol] 1 mg IVPUSH Q1H PRN Carboprost Tromethamine [Hemabate DS] 250 mcg IM ASDIRECTED PRN Lidocaine 1% [Xylocaine 1%] 50 ml INJECT ONETIME PRN Methylergonovine [Methergine] 0.2 mg IM ASDIRECTED PRN Nalbuphine [Nubain] 10 mg IVPUSH Q1H PRN Sodium Chloride 0.9% [Saline Flush] 10 ml FLUSH ASDIRECTED PRN Sodium Chloride 0.9% [Saline Flush] 2.5 ml FLUSH ASDIRECTED PRN Tranexamic Acid [Cyklokapron] 1,000 mg Sodium Chloride 0.9% [Normal Saline] 100 ml IV ONETIME miSOPROStoL [Cytotec] 200 mcg PO ONETIME PRN Peripheral IV Insertion Adult [OM.PC] Routine 07/04/21 06:30 Lactated Ringers [Ringers, Lactated] 1,000 ml IV ASDIRECTED Oxytocin/0.9 % Sodium Chloride [Oxytocin 30 Unit/500 ML-NS] 30 unit in 500 ml IV TITRATE 07/04/21 07:27 Acetaminophen [Tylenol Extra Strength] 1,000 mg PO Q6H PRN 07/04/21 10:32 Terbutaline [Brethine] 0.25 mg SUBCUT ASDIRECTED PRN 07/04/21 10:33 Bedrest Bathroom Privileges [RC] ASDIRECTED Communication Order [RC] ASDIRECTED Oxygen Therapy [RC] ASDIRECTED 07/04/21 14:13 Ondansetron [Zofran] 4 mg IVPUSH Q6H PRN 07/04/21 18:43 Patient Status [ADT] Routine May Shower [RC] ASDIRECTED Up ad Kisha [RC] ASDIRECTED Vital Signs [RC] PER UNIT ROUTINE Acetaminophen [Tylenol Extra Strength] 1,000 mg PO Q4H PRN Acetaminophen [Tylenol Extra Strength] 500 mg PO Q4H PRN Benzocaine/Menthol [Dermoplast Pain Relief 20%-0.5% [place]] 78 gm TOP ASDIRECTED PRN Docusate Sodium [Colace] 100 mg PO Q12H PRN Ibuprofen [Motrin] 400 mg PO Q4H PRN Ibuprofen [Motrin] 800 mg PO Q6H PRN Lanolin [Lansinoh HPA] See Dose Instructions TOP ASDIRECTED PRN bisacodyL [Dulcolax] 10 mg RECTAL ONETIME PRN oxyCODONE 5 mg PO Q2H PRN witch Norm [Tucks] 1 pad TOP ASDIRECTED PRN Assess Lochia [WOMSER] Per Unit Routine Assess Uterine Involution [WOMSER] Per Unit Routine Peripheral IV Discontinue [OM.PC] Routine Resuscitation Status Routine 07/05/21 05:11 HEMOGLOBIN/HEMATOCRIT,HH [HEME] Timed - Assessment Assessment:: 30yo P2 s/p PPD0 Rubella immune Rh negative - Plan Plan:: Routine
[2021-07-04] MEDS: Ibuprofen 800 MG Tab PO PRN (20:11)
[2021-07-04] MEDS: Witch Hazel Medicated Pads 40/Jar TOP PRN (20:16)
[2021-07-05] MEDS: Ibuprofen 800 MG Tab PO PRN (05:20)
[2021-07-05] MEDS: Acetaminophen 500 MG Tab PO PRN (05:21)
--- NOTE | 2021-07-05 07:28 | OR ---
SURGEON: SURESH DE LA ROSA DATE OF PROCEDURE: 07/04/2021 PREOPERATIVE DIAGNOSIS: A 30-year-old 2, para 1-0-0-1 at 39 weeks 3 days, admitted in early labor. POSTOPERATIVE DIAGNOSIS: A 30-year-old 2, para 1-0-0-1 at 39 weeks 3 days, admitted in early labor. PROCEDURE: Normal spontaneous vaginal delivery, repair of second-degree vaginal laceration. ESTIMATED BLOOD LOSS: 200. IV FLUIDS: Pitocin running. ANESTHESIA: Epidural. NOTE AND FINDING: A live female delivered at 1618. score 8 and 9. Weight is 3570. BRIEF HISTORY ABOUT THE PATIENT: She is a 30-year-old G2, P 1-0-0-1 at 39 weeks 3 days, who complained of contractions and rupture of membranes. When she came in, she was about 4 to 5 cm dilated. She was observed for a period, and she made no change. So Pitocin was started. After Pitocin was started, rupture of forebag was noted. She made progress and she became fully dilated. DESCRIPTION OF PROCEDURE: The patient being fully dilated, she was encouraged to push. With good pushing effort, she delivered the head subsequently by the anterior and posterior shoulder, delivered the body. The infant was placed on the maternal abdomen. Delayed cord clamping was observed. The placenta was delivered via controlled cord traction. The perineum was inspected. A second-degree laceration was noted, which was repaired in layer with 2-0 Monocryl. A bimanual exam was done. Noted to have a firmed uterus. All instrument and pad counts were correct x2. The patient tolerated the procedure. JAMEL MAYER /[id number] MTDZeina
--- NOTE | 2021-07-05 08:57 | PCM.PNPP ---
- General Info Date of Service: 07/05/21 Subjective Update: Patient doing well this morning, sore but otherwise no complaints. Functional Status: Reports: Pain Controlled, Tolerating Diet, Ambulating, Urinating - Review of Systems General: Reports: No Symptoms HEENT: Reports: No Symptoms Pulmonary: Reports: No Symptoms Cardiovascular: Reports: No Symptoms Gastrointestinal: Reports: No Symptoms Genitourinary: Reports: No Symptoms Musculoskeletal: Reports: No Symptoms Skin: Reports: No Symptoms Neurological: Reports: No Symptoms Psychiatric: Reports: No Symptoms - Patient Data Vital Signs - Most Recent: Last Vital Signs Temp 36.1 C 07/05/21 08:00 Pulse 75 07/05/21 08:00 Resp 18 07/05/21 08:00 BP 115/72 07/05/21 08:00 Pulse Ox 96 07/05/21 08:00 Weight - Most Recent: 80.739 kg I&O - Last 24 Hours: Intake & Output 07/04/21 07/05/21 07/05/21 22:59 06:59 14:59 Intake Total 1700 Output Total 700 Balance 1000 Lab Results - Last 24 Hours: Laboratory Results - last 24 hr 07/04/21 07/04/21 07/05/21 Range/Units 06:18 16:18 05:30 Hgb 11.3 L (12.0-16.0) g/dL Hct 32.9 L (36.0-46.0) % Cord ABG pH 7.251 (7.18-7.38) Cord ABG Base Excess -6 (-10--2) Cord VBG pH 7.378 (7.25-7.45) Cord VBG Base Excess -6 (-10--2) SARS-CoV-2 RNA (SHANNAN) NEGATIVE (NEGATIVE) Med Orders - Current: Current Medications Acetaminophen (Acetaminophen 500 Mg Tab) 1,000 mg PO Q6H PRN PRN Reason: Headache Last Admin: 07/05/21 05:21 Dose: 1,000 mg Documented by: Acetaminophen (Acetaminophen 500 Mg Tab) 500 mg PO Q4H PRN PRN Reason: Pain (mild 1-3) Acetaminophen (Acetaminophen 500 Mg Tab) 1,000 mg PO Q4H PRN PRN Reason: Pain (mild 1-3) Benzocaine/Menthol (Benzocaine/Menthol 20%-0.5% [place] 78 Gm Cannister) 78 gm TOP ASDIRECTED PRN PRN Reason: Perineal Comfort Measure Last Admin: 07/04/21 20:19 Dose: 1 spray Documented by: Bisacodyl (Bisacodyl 10 Mg Supp) 10 mg RECTAL ONETIME PRN PRN Reason: Constipation Butorphanol Tartrate (Butorphanol 1 Mg/Ml Sdv) 1 mg IVPUSH Q1H PRN PRN Reason: Pain (severe 7-10) Carboprost Tromethamine (Carboprost Tromethamine 250 Mcg/1 Ml Amp) 250 mcg IM ASDIRECTED PRN PRN Reason: Post Hemorrhage Docusate Sodium (Docusate Sodium 100 Mg Cap) 100 mg PO Q12H PRN PRN Reason: Constipation Emollient Ointment (Lanolin 100% Cream 7 Gm Tube) 0 gm TOP ASDIRECTED PRN PRN Reason: Sore Nipples Ephedrine Sulfate (Ephedrine 50 Mg/Ml Sdv) 10 mg IVPUSH Q5M PRN PRN Reason: Hypotension Lactated Ringer's (Ringers, Lactated) 1,000 mls @ 150 mls/hr IV ASDIRECTED MANJU Last Admin: 07/04/21 14:26 Dose: 150 mls/hr Documented by: Oxytocin/Sodium Chloride (Oxytocin 30 Unit/500 Ml-Ns) 30 unit in 500 mls @ 999 mls/hr IV TITRATE [facility] Tranexamic Acid 1,000 mg/ (Sodium Chloride) 110 mls @ 660 mls/hr IV ONETIME PRN PRN Reason: Bleeding Ibuprofen (Ibuprofen 400 Mg Tab) 400 mg PO Q4H PRN PRN Reason: Pain (mild 1-3) Ibuprofen (Ibuprofen 800 Mg Tab) 800 mg PO Q6H PRN PRN Reason: Pain (mild 1-3) Last Admin: 07/05/21 05:20 Dose: 800 mg Documented by: Lidocaine HCl (Lidocaine 1% 50 Ml Mdv) 50 ml INJECT ONETIME PRN PRN Reason: Laceration repair Methylergonovine Maleate (Methylergonovine 0.2 Mg/1 Ml Amp) 0.2 mg IM ASDIRECTED PRN PRN Reason: Post Hemorrhage Misoprostol (Misoprostol 200 Mcg Tab) 200 mcg PO ONETIME PRN PRN Reason: Post Hemorrhage Nalbuphine HCl (Nalbuphine 10 Mg/1 Ml Vial) 10 mg IVPUSH Q1H PRN PRN Reason: Pain (severe 7-10) Ondansetron HCl (Ondansetron 4 Mg/2 Ml Sdv) 4 mg IVPUSH Q6H PRN PRN Reason: Nausea/Vomiting Last Admin: 07/04/21 14:18 Dose: 4 mg Documented by: Oxycodone HCl (Oxycodone 5 Mg Tab) 5 mg PO Q2H PRN PRN Reason: Pain (severe 7-10) Sodium Chloride (Sodium Chloride 0.9% 10 Ml Syringe) 10 ml FLUSH ASDIRECTED PRN PRN Reason: Keep Vein Open Sodium Chloride (Sodium Chloride 0.9% 2.5 Ml Syringe) 2.5 ml FLUSH ASDIRECTED PRN PRN Reason: Keep Vein Open Terbutaline Sulfate (Terbutaline 1 Mg/Ml Sdv) 0.25 mg SUBCUT ASDIRECTED PRN PRN Reason: Tacysystole Witch Jaci (Witch Jaci Medicated Pads 40/Jar) 1 pad TOP ASDIRECTED PRN PRN Reason: comfort care Last Admin: 07/04/21 20:16 Dose: 1 pad Documented by: Discontinued Medications Oxytocin/Sodium Chloride (Oxytocin 30 Unit/500 Ml-Ns) 30 unit in 500 mls @ 2 mls/hr IV TITRATE MANJU; Protocol Last Titration: 07/04/21 16:18 Dose: 999 munits/min, 999 mls/hr Documented by: Ropivacaine (Naropin 0.2%) Confirm Administered Dose 200 mls @ as directed .ROUTE .[facility]-MED ONE Stop: 07/04/21 13:41 Sodium Chloride (Sodium Chloride 0.9% 10 Ml Sdv) 10 ml IV ASDIRECTED PRN PRN Reason: IV Use Sterile Water (Water For Irrigation,Sterile 1,000 Ml Container) 1,000 ml IRR ASDIRECTED PRN PRN Reason: delivery - Infant Interaction Infant Disposition, : in Room with Family Infant Interaction: Holding Infant Infant Feeding: Breastfed Infant; Nursed Well Support Person: - Recovery Exam Fundal Tone: Firm Fundal Level: 1 Fingerbreadths Below Umbilicus Fundal Placement: Midline Lochia Amount: Small Lochia Color: Rubra/Red Bladder Status: Voiding Urinary Elimination: Voided - Exam General: Alert, Oriented Neck: Supple Lungs: Normal Respiratory Effort GI/Abdominal Exam: Soft, Non-Tender, No Distention Extremities: No Pedal Edema Skin: Warm, Dry, Intact Neurological: No New Focal Deficit Psy/Mental Status: Alert, Normal Affect, Normal Mood - Problem List & Annotations (1) Vaginal delivery SNOMED Code(s): 701407511 Code(s): O80 - ENCOUNTER FOR FULL-TERM UNCOMPLICATED DELIVERY Status: Acute Current Visit: No - Problem List Review Problem List Initiated/Reviewed/Updated: Yes - My Orders Last 24 Hours: My Active Orders 07/05/21 08:55 Ready for Discharge [RC] PER UNIT ROUTINE - Assessment Assessment:: 30yo s/p , PPD#1 - Plan Plan:: Continue routine cares. Rh positive. Plan discharge home today, reviewed discharge precautions and all questions answered.
[2021-07-05] MEDS: Witch Hazel Medicated Pads 40/Jar TOP PRN (11:52)
[2021-07-05 17:15] VITALS: BP 122/83; PULSE 79
== END 2021-07-05 18:00 | disposition home or self-care (01) | DRG 560 ==
LOC: MW.OBCHECK 05:03 → MW.OB 05:04 → MW.OBCHECK 06:22 → MW.OB 06:22 → OBSVTOIN 18:43 → MW.OB 22:56
PROVIDERS: ADMIT Obstetrics & Gynecology; ATTEND Obstetrics & Gynecology
PROC: 10E0XZZ Delivery of Products of Conception, External Approach (ICD-10-PCS; principal; 2021-07-04)
PROC: 0KQM0ZZ Repair Perineum Muscle, Open Approach (ICD-10-PCS; 2021-07-04)
PROC: 3E0R3BZ Introduction of Anesthetic Agent into Spinal Canal, Percutaneous Approach (ICD-10-PCS; 2021-07-04)
DX: O69.81X0 Labor and delivery complicated by cord around neck, without compression, not applicable or unspecified (principal); Z3A.39 39 weeks gestation of pregnancy; Z37.0 Single live birth; O70.1 Second degree perineal laceration during delivery; Z20.822 Contact with and (suspected) exposure to COVID-19
CPT/HCPCS: 36415; 51702; 59025; 59409; 82803; 84112; 85014; 85018; 85027; 86592; 86850; 86900; 86901; A9270-GY; J2405; J2590; J2795; J7120; U0002

== ENCOUNTER 2022-09-09 01:18 | Inpatient (IN) | payer BC ==
[2022-09-09] MEDS ORDERED: Methylergonovine 0.2 MG/1 ML Amp IM PRN ×2 (02:34→04:46)
[2022-09-09] MEDS ORDERED: Butorphanol 1 MG/ML SDV IVPUSH PRN (02:34)
[2022-09-09] MEDS ORDERED: Tranexamic Acid 1,000 MG in Sodium Chloride 0.9% 100 ML IV PRN ×2 (02:34→04:46)
[2022-09-09] MEDS ORDERED: Misoprostol 200 MCG Tab PO PRN (02:34)
[2022-09-09] MEDS ORDERED: Lidocaine 1% 50 ML MDV INJECT PRN (02:34)
[2022-09-09] MEDS ORDERED: Carboprost Tromethamine 250 MCG/1 ML Amp IM PRN (02:34)
[2022-09-09] MEDS ORDERED: Sodium Chloride 0.9% 20 ML SDV IV PRN (02:34)
[2022-09-09] MEDS ORDERED: Sodium Chloride 0.9% 2.5 ML Syringe FLUSH PRN (02:34)
[2022-09-09] MEDS ORDERED: Water For Irrigation,Sterile 1,000 ML Container IRR PRN (02:34)
[2022-09-09] MEDS ORDERED: Ondansetron 4 MG/2 ML SDV IVPUSH PRN (02:34)
[2022-09-09] MEDS ORDERED: Sodium Chloride 0.9% 10 ML Syringe FLUSH PRN (02:34)
[2022-09-09] MEDS ORDERED: Lactated Ringers 1,000 ML IV SCH (02:45)
[2022-09-09] MEDS ORDERED: Oxytocin/0.9 % Sodium Chloride 30 UNIT/500 ML BAG IV SCH (02:45)
[2022-09-09] MEDS ORDERED: ePHEDrine 50 MG/ML SDV IVPUSH PRN (03:46)
[2022-09-09] MEDS ORDERED: Phenylephrine HCl In 0.9% NaCl 1 MG/10 ML Vial IVPUSH SCH (04:00)
[2022-09-09] MEDS ORDERED: Ropivacaine 0.5% 5 MG/ML 30 ML SDV ONE (04:41)
[2022-09-09] MEDS ORDERED: Ropivacaine 0.2% PF 2 MG/ML 20 ML SDV ONE (04:41)
[2022-09-09] MEDS ORDERED: Bisacodyl 10 MG Supp RECTAL PRN (04:46)
[2022-09-09] MEDS ORDERED: Acetaminophen 500 MG Tab PO PRN (04:46)
[2022-09-09] MEDS ORDERED: Lanolin 100% Cream 7 GM Tube TOP PRN (04:46)
[2022-09-09] MEDS ORDERED: Witch Hazel Medicated Pads 40/Jar TOP PRN (04:46)
[2022-09-09] MEDS ORDERED: Ibuprofen 400 MG Tab PO PRN (04:46)
[2022-09-09] MEDS ORDERED: Docusate Sodium 100 MG Cap PO PRN (04:46)
[2022-09-09] MEDS ORDERED: Benzocaine/Menthol 20%-0.5% Spray 78 GM Cannister TOP PRN (04:46)
[2022-09-09] MEDS: Acetaminophen 500 MG Tab PO PRN ×2 (08:19→16:06)
[2022-09-09] MEDS: Ibuprofen 800 MG Tab PO PRN ×2 (11:11→20:30)
[2022-09-10] MEDS: Acetaminophen 500 MG Tab PO PRN (05:30)
[2022-09-10 08:17] VITALS: BP 122/84; PULSE 89
== END 2022-09-10 12:40 | disposition home or self-care (01) | DRG 560 ==
LOC: MW.OBCHECK 01:18 → MW.OB 01:20 → MW.OBCHECK 02:34 → MW.OB 02:35 → OBSVTOIN 04:20 → MW.OB 10:28
PROVIDERS: ADMIT Obstetrics & Gynecology; ATTEND Obstetrics & Gynecology
PROC: 10E0XZZ Delivery of Products of Conception, External Approach (ICD-10-PCS; principal; 2022-09-09)
PROC: 0KQM0ZZ Repair Perineum Muscle, Open Approach (ICD-10-PCS; 2022-09-09)
PROC: 3E0R3BZ Introduction of Anesthetic Agent into Spinal Canal, Percutaneous Approach (ICD-10-PCS; 2022-09-09)
PROC: 10907ZC Drainage of Amniotic Fluid, Therapeutic from Products of Conception, Via Natural or Artificial Opening (ICD-10-PCS; 2022-09-09)
DX: O70.1 Second degree perineal laceration during delivery (principal); Z37.0 Single live birth; Z3A.40 40 weeks gestation of pregnancy; Z20.822 Contact with and (suspected) exposure to COVID-19
CPT/HCPCS: 01967; 36415; 82803; 85014; 85018; 85027; 86592; 86850; 86900; 86901; A9270-GY; J2795; U0002